=== PATIENT | female | born 2000 | race Caucasian/White ===

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

== ENCOUNTER 2023-04-07 08:27 | Emergency (ER) | payer OTHER, SELFPAY ==
--- NOTE | 2023-04-07 08:30 | ED.BACK ---
HPI - Back Pain/Injury General Chief Complaint: Back Pain/Injury Stated Complaint: right side back pain Time Seen by Provider: 04/07/23 08:30 Source: patient Mode of arrival: ambulatory Limitations: no limitations History of Present Illness HPI Narrative: Fatemeh is a 22-year-old female patient presenting to the clinic today with complaints of right-sided back pain that began this morning. She reports she woke up this morning with some right-sided low back pain. She reports that she was heading to her mother's and coughed in the car and pain increased and is now constant. She reports that there was an ache in her back. No known injury. Denies any saddle anesthesia or numbness and tingling going down her legs. Denies any loss of bowel or bladder. Related Data Allergies Allergy/AdvReac Type Severity Reaction Status Date / Time No Known Allergies Allergy Unknown Verified 04/07/23 08:41 Review of Systems Review of Systems: Pertinent positives per HPI. Patient denies any fever, chills, rash, headache, visual changes, dizziness, cough, runny nose, sore throat, shortness of breath, chest pain, palpitations, nausea, vomiting, diarrhea, constipation, abdominal pain, or any urinary issues. PMFSH Past Medical History Medical History Anxiety Asthma sports induced Depression IUD (intrauterine device) in place Surgical History Surgical History No pertinent past surgical history Family History Family History Father Alive and well Father Alive and well Social History Social History Smoking status: Never smoker Second hand tobacco smoke exposure: No Alcohol intake: never Substance use: never Living arrangements: with family Occupation/Education: occupation Gender identity (if verbalized by the patient): Female Comments At the time of my signature, I reviewed and agree with the nursing past medical, surgical, social, and family history. There is no relevant family history pertinent to the patient complaint. Exam Narrative: General: Well-developed, well nourished, in no apparent distress Head: Normocephalic, atraumatic. Cardio: Regular rate and rhythm, s1 and s2 normal, no murmur appreciated. Resp: Clear to auscultation bilaterally, no rhonchi, rales, wheezing or rubs. Musculoskeletal: No deformity,tender to palpation over the musculature of the right low back, grossly normal range of motion, patellar reflexes 2+ bilaterally, muscle strength strong and equal, peripheral pulse strong, no edema, no cyanosis, normal gait and station Course Course Emergency Course: Portions of this record may have been created with voice recognition software. Level of Care: Express Care Visit Vital Signs Vital signs: Vital Signs Temperature 36.3 C L 04/07/23 08:32 Pulse Rate 84 04/07/23 08:32 Respiratory Rate 16 04/07/23 08:32 Blood Pressure 109/83 04/07/23 08:32 Pulse Oximetry 99 04/07/23 08:32 Oxygen Delivery Room Air 04/07/23 08:32 Temperature 36.3 C L 04/07/23 08:43 Pulse Rate 84 04/07/23 08:43 Respiratory Rate 16 04/07/23 08:43 Blood Pressure 109/83 04/07/23 08:43 Pulse Oximetry 99 04/07/23 08:43 Oxygen Delivery Room Air 04/07/23 08:43 Vital signs reviewed MDM - Back Pain/Injury MDM Narrative Medical decision making narrative: At the time of visit patient is resting comfortably on the exam table. I suspect patient has a lumbar strain. Prescription for Flexeril was sent to the pharmacy and she was encouraged to take Tylenol/ibuprofen as needed for pain. Ibuprofen was given in the clinic today prior to departure. Supportive measures were discussed with the patient she voiced understanding of the discharge instructions and agrees to treatment plan. Return precautions were review
[2023-04-07 08:32] VITALS: BP 109/83; PULSE 84; RESP 16; TEMP 36.3; O2SAT 99
[2023-04-07 08:43] VITALS: BP 109/83; PULSE 84; RESP 16; TEMP 36.3; O2SAT 99
[2023-04-07] MEDS: IBUPROFEN 400 MG TABLET 800 MG PO (08:54)
== END 2023-04-07 08:55 | disposition home or self-care (01) ==
LOC: EXPBETH 08:34
PROVIDERS: Emergency Provider Nurse Practitioner Family
DX: S39.012A Strain of muscle, fascia and tendon of lower back, initial encounter (principal); X58.XXXA Exposure to other specified factors, initial encounter; J45.990 Exercise induced bronchospasm
CPT/HCPCS: 99213; A9270; G0463

== ENCOUNTER 2023-05-04 09:33 | Emergency (ER) | payer OTHER, SELFPAY ==
[2023-05-04 09:40] VITALS: BP 106/73; PULSE 86; RESP 16; TEMP 36.7; O2SAT 97
--- NOTE | 2023-05-04 09:45 | ED.URI ---
HPI - URI/Sore Throat General Chief Complaint: Upper Respiratory Infection Stated Complaint: Body Aches/Fever/Headache Time Seen by Provider: 05/04/23 09:59 Source: patient, RN notes reviewed and old records reviewed Mode of arrival: ambulatory Limitations: no limitations History of Present Illness HPI Narrative: 22-year-old female presents to [facility] with complaints of a sore throat, body aches, headache and reports of a fever of 100 last night. Related Data Allergies Allergy/AdvReac Type Severity Reaction Status Date / Time No Known Allergies Allergy Unknown Verified 04/07/23 08:41 Review of Systems Review of Systems: All systems reviewed & are unremarkable except as noted in HPI and below Constitutional: Constitutional: Reports as per HPI and Reports body ache(s) Eyes: Eyes: Reports no additional eye complaints ENT: Reports as per HPI and Reports sore throat Cardiovascular: Cardiovascular: Reports no additional cardiovascular complaints, Denies chest pain and Denies dyspnea Respiratory: Respiratory: Reports no additional respiratory complaints, Denies chest congestion, Denies cough and Denies dyspnea Gastrointestinal: Gastrointestinal: Reports no additional gastrointestinal complaints, Denies abdominal pain, Denies nausea and Denies vomiting Musculoskeletal: Musculoskeletal: Reports no additional musculoskeletal complaints Integumentary/Breasts: Skin/Breast: Reports system reviewed and no additional complaints, except as docu Neurologic: Reports system reviewed and no additional complaints, except as documented Psychiatric: Psychiatric: Reports no additional psychiatric complaints Allergic/Immunologic: Allergic/Immunologic: Reports no additional allergic/immunologic complaints [facility] Past Medical History Medical History Anxiety Asthma sports induced Depression IUD (intrauterine device) in place Surgical History Surgical History No pertinent past surgical history Family History Family History Father Alive and well Father Alive and well Social History Social History Smoking status: Never smoker Second hand tobacco smoke exposure: No Alcohol intake: never Substance use: never Living arrangements: with family Occupation/Education: occupation Gender identity (if verbalized by the patient): Female Comments At the time of my signature, I reviewed and agree with the nursing past medical, surgical, social, and family history. There is no relevant family history pertinent to the patient complaint. Exam Const: General: cooperative, healthy appearing, comfortable, no acute distress, well developed, alert and well nourished Nutritional Appearance: well nourished Orientation/consciousness: patient oriented x3 Limitations: no limitations HENMT: Head: normal to inspection Ears: hearing grossly normal bilaterally, external ears normal, TM's normal bilaterally, EAC's normal, mastoids normal and no periauricular adenopathy Face/Nose/Sinus: Normal external nose present, Normal nares present, Normal nasal mucous membranes and turbinates present, normal facial exam and face symmetric Face and sinus: normal facial exam and face symmetric Mouth: Yes Normal oral and palatal mucosa present, Yes lip normal and Yes moist mucous membranes Throat: posterior oropharynx normal, uvula midline and postnasal drainage Eyes: General: appearance normal, both eyes and all related structures Alignment and Position: alignment normal Periorbital: periorbital findings normal Pupils: Equal, round and reactive pupils present EOM: EOMs intact bilaterally Neck: Neck: normal visual inspection, full ROM, no lymphadenopathy and no meningeal signs Chest: Chest palpation & inspection: normal inspection of the chest Resp: Effort & Inspection: normal
== END 2023-05-04 10:12 | disposition home or self-care (01) ==
PROVIDERS: Emergency Provider Nurse Practitioner
DX: B34.9 Viral infection, unspecified (principal)
CPT/HCPCS: 87081; 87880; 99213; G0463